=== PATIENT | male | born 1990 | race Caucasian/White ===

== ENCOUNTER 2017-01-21 14:38 | Emergency (ER) | payer OTHER ==
[~2017-01-21] VITALS: Ht 198.1 cm; Wt 81.6 kg
--- NOTE | 2017-01-21 14:40 | NUR ---
Arrived via [facility] ambulance for left arm numbness and neck pain. States that has been going for 3 days. Patient to ER gill 1 to go for evaluation. Side rails up. Report given to Nataliia FERREIRA.
[2017-01-21 14:59] VITALS: BP 130/80; PULSE 70; RESP 16; TEMP 97.3; O2SAT 100
--- NOTE | 2017-01-21 15:01 | NUR ---
PT STATES NECK PAIN AND LEFT ARM NUMBNESS--NUMBNESS HAS RESOLVED. WILL WITH NECK PAIN.
[2017-01-21] MEDS ORDERED: KETOROLAC TROMETHAMINE 60 MG/2 ML VIAL IM ONE (15:15)
[2017-01-21] MEDS ORDERED: DEXAMETHASONE SOD PHOSPHATE 10 MG/ML VIAL IM ONE (15:15)
[2017-01-21] MEDS ORDERED: CARISOPRODOL 350 MG TABLET PO ONE (15:15)
--- NOTE | 2017-01-21 15:21 | NUR ---
TAKEN TO RADIOLOGY VIA WHEELCHAIR
--- NOTE | 2017-01-21 15:28 | NUR ---
RETURNED FROM RADIOLOGY AND PLACED BACK INTO BED BATT[facility]
[2017-01-21 16:39] VITALS: BP 124/67; PULSE 72; RESP 17; TEMP 97.8; O2SAT 99
--- NOTE | 2017-01-21 16:40 | NUR ---
Patient given written and verbal discharge instructions and verbalizes understanding. ER MD discussed with patient the results and treatment provided. Given copies of tests performed in ER. Patient in stable condition. ID arm band removed. Rx of IBUPROFEN, FLEXERIL given. Patient educated on pain management and to follow up with PMD. Pain Scale 0/10. Opportunity for questions provided and answered.
== END 2017-01-21 16:39 | disposition home or self-care (01) ==
LOC: SED 14:38
DX: M54.12 Radiculopathy, cervical region (principal)
CPT/HCPCS: 72040; 96372; 99284; J1100; J1885